=== PATIENT | female | born 1950 | race Hispanic/Latino ===

== ENCOUNTER 2019-04-13 15:31 | Emergency (ER) | payer OTHER ==
[~2019-04-13 15:31] MED LIST: ASPI-1012 PO; LISI-613 PO; METH750T3 PO; ROSU5TAB PO; TRAM50TA2 PO
[2019-04-13] MEDS ORDERED: LORAZEPAM 2 MG/ML 1 ML VIAL ONE (16:14)
[2019-04-13] MEDS ORDERED: SODIUM CHLORIDE 0.9% 1000ML 1,000 ML IV ONE (16:16)
[2019-04-13 16:38] LABS: BASOPHILS % (AUTO) 0.4 % (0.0-5.0); EOSINOPHILS % (AUTO) 2.2 % (0.0-8.0); HEMATOCRIT 41.8 % (36-48); LYMPHOCYTES % (AUTO) 28.8 % (21.0-51.0); MEAN CORPUSCULAR HEMOGLOBIN 27.9 pg (27.0-33.0); MEAN CORPUSCULAR HGB CONC 32.5 g/dL (32.0-36.0); MEAN CORPUSCULAR VOLUME 85.8 fL (79-99); MONOCYTES % (AUTO) 5.8 % (3.0-13.0); NEUTROPHILS % (AUTO) 62.5 % (40.0-77.0); PLATELET COUNT (AUTO) 214 K/uL (130-400); RED BLOOD CELL COUNT(AUTO) 4.87 MIL/uL (4.00-5.50); RED CELL DISTRIBUTION WIDTH 12.9 % (11.0-15.5)
[2019-04-13 17:04] LABS: CREATININE 0.7 mg/dL (0.5-1.5); POTASSIUM 3.8 mmol/L (3.5-5.1)
[2019-04-13 17:09] LABS: ALBUMIN 3.7 g/dL (3.5-5.0); BILIRUBIN,TOTAL 0.5 mg/dL (0.2-1.0); TOTAL PROTEIN, SERUM 7.5 g/dL (6.0-8.3)
[2019-04-13] MEDS ORDERED: ACETAMINOPHEN 325 MG TAB ONE (17:39)
== END 2019-04-13 18:12 | disposition home or self-care (01) ==
LOC: EDH 15:31
DX: R42 Dizziness and giddiness (principal); R06.00 Dyspnea, unspecified; I10 Essential (primary) hypertension; E78.5 Hyperlipidemia, unspecified; Z90.49 Acquired absence of other specified parts of digestive tract; Z98.890 Other specified postprocedural states
CPT/HCPCS: 36415; 71045; 80053; 82550; 83880; 84484; 85025; 85378; 93005; 93970; 96361; 96374; 99285; J2060; J7030

== ENCOUNTER 2023-10-02 09:17 | Emergency (ER) | payer OTHER ==
[~2023-10-02] VITALS: Ht 157.5 cm; Wt 90.7 kg
[~2023-10-02 09:17] MED LIST changes: -LISI-613 PO; +LISI20TA24 PO; +METH-812 PO; -METH750T3 PO
[2023-10-02 09:58] LABS: RAPID GROUP A STREP negative (NEGATIVE)
[2023-10-02 10:04] LABS: INFLUENZA TYPE A Negative For Type A (NEGATIVE); INFLUENZA TYPE B Negative For Type B (NEGATIVE)
[2023-10-02 10:28] LABS: BASOPHILS # (AUTO) 0.02 K/uL (0.00-0.20); BASOPHILS % (AUTO) 0.2 % (0.0-5.0); EOSINOPHILS # (AUTO) 0.07 K/uL (0.00-0.70); EOSINOPHILS % (AUTO) 0.7 % (0.0-8.0); HEMATOCRIT 37.7 % (36-48); IMMATURE GRANULOCYTE ABSOLUTE 0.05 K/uL (0-1); LYMPHOCYTES # (AUTO) 0.7 K/uL (1.0-4.8); LYMPHOCYTES % (AUTO) 7.4 % (21.0-51.0); MEAN CORPUSCULAR HGB CONC 34.2 g/dL (32.0-36.0); MEAN CORPUSCULAR VOLUME 84.7 fL (79-99); MONOCYTES # (AUTO) 0.5 K/uL (0.1-1.0); NEUTROPHILS # (AUTO) 8.6 K/uL (1.8-7.7); NEUTROPHILS % (AUTO) 86.2 % (40.0-77.0); PLATELET COUNT (AUTO) 233 K/uL (130-400); RED BLOOD CELL COUNT(AUTO) 4.45 MIL/uL (4.00-5.50); RED CELL DISTRIBUTION WIDTH 12.5 % (11.0-15.5); WHITE BLOOD COUNT (AUTO) 9.9 K/uL (4.8-10.8)
[2023-10-02 10:38] LABS: SARS-CoV-2, RNA, NAAT POSITIVE SARS CoV-2 (NEGATIVE)
[2023-10-02 10:39] LABS: POTASSIUM 3.2 mmol/L (3.5-5.1)
[2023-10-02] MEDS ORDERED: ONDANSETRON 4MG INJ IVP ONE (11:00)
[2023-10-02] MEDS: ONDANSETRON 4MG TABLET PO ONE (11:07)
[2023-10-02] MEDS: KCL 20 MEQ ERTAB PO ONE (11:07)
[2023-10-02] MEDS: ONDANSETRON 4MG TABLET ONE (11:07)
[2023-10-02 14:10] VITALS: BP 141/65; PULSE 70; RESP 16; O2SAT 100
[2023-10-02] MEDS ORDERED: AZIT250T9 PO (14:11)
== END 2023-10-02 14:13 | disposition home or self-care (01) ==
LOC: EDH 09:17
DX: U07.1 COVID-19 (principal); J20.8 Acute bronchitis due to other specified organisms; B97.89 Other viral agents as the cause of diseases classified elsewhere; K59.09 Other constipation; E78.00 Pure hypercholesterolemia, unspecified; Z86.73 Personal history of transient ischemic attack (TIA), and cerebral infarction without residual deficits; Z90.49 Acquired absence of other specified parts of digestive tract
CPT/HCPCS: 99284; 71045; 87635; 80048; 85025; 87880; 87804 ×2; 36415; 74018; Q0162

== ENCOUNTER → 2024-02-05 | Outpatient (CLI) | payer OTHER ==
[~2024-02-05] MED LIST changes: +AZIT250T9 PO
--- NOTE | 2024-02-05 16:13 | HMCIMG ---
CHEST 2VWS REASON: WHEEZING COMPARISON: 10/02/2023 FINDINGS: Two views of the chest were obtained. Lungs are clear. Heart size is normal. There is no pulmonary vascular congestion. Mediastinum and bony thorax appear unremarkable. IMPRESSION: Normal two view chest x-ray.
== END | disposition home or self-care (01) ==
LOC: RAH 14:57
PROVIDERS: ATTEND Physician Assistant Medical
DX: R06.2 Wheezing (principal)
CPT/HCPCS: 71046

== ENCOUNTER 2025-03-03 11:47 | Emergency (ER) | payer OTHER ==
[~2025-03-03] VITALS: Ht 157.5 cm; Wt 90.7 kg
[2025-03-03 11:49] VITALS: BP 144/86; PULSE 90; RESP 16; TEMP 98.7
--- NOTE | 2025-03-03 13:00 | NUR ---
PT MOVED INTO ED BED09 AT THIS TIME FOR ASSESMENT. PT C/O BILATERAL KNEE PAIN POST TRIP AND FALL. DENIES HEAD INJURY.
--- NOTE | 2025-03-03 14:19 | ERN ---
ED Note History of Present Illness Stated Complaint: FALL Chief Complaint: Mechanical Fall Time Seen by MD: 12:35 Time Seen by Midlevel: 13:00 Dictation: 74-year-old female coming in status post ground level fall. Patient states she was up on the 3rd floor visiting her daughter when she slipped fell forward. Complaining of bilateral knee pain and chest pain. Patient states she fell and hit her knees on the floor along with the her chest. Denies any head injury, denies any blood thinners. Denies any LOC. Allergies: Coded Allergies: No Known Drug Allergies (Unverified Allergy, Unknown, 05/04/15) Home Meds Active Scripts Azithromycin (Azithromycin) 250 Mg Tablet, 250 MG PO DAILY for 5 Days, #5 TAB Prov:ENOCH SIMMONS MD 10/02/23 Tramadol HCl (Ultram) 50 Mg Tab, 50 MG PO Q6H PRN for PAIN, #25 TAB Prov:NANCY LOVETT MD 05/07/15 Reported Medications Aspirin (ASPIRIN) 325 Mg Tablet, 325 MG PO AM, TAB 05/04/15 Methocarbamol (Methocarbamol) 750 Mg Tablet, 750 MG PO BID, TAB 05/04/15 Rosuvastatin Calcium (Crestor) 5 Mg Tablet, 5 MG PO HS, TAB 05/04/15 Lisinopril (Lisinopril) 20 Mg Tablet, 20 MG PO AM, TAB 05/04/15 Past Medical History Past Medical History: High Cholesterol, Hypertension, Stroke Surgical History: Cholecystectomy, Family History: Negative Social History: Negative History: Not Applicable Review of System Dictation Constitutional: Negative for fever,chills, and weight loss Eyes: Negative for injury, pain,redness, and discharge ENT: Negative for injury,pain or swelling Cardiovascular: Negative for chest pain, palpitations, and edema Respiratory: Negative for shortness of breath, cough, and wheezing, Abdomen/GI: Negative for abdominal pain, nausea, vomiting, diarrhea, and constipation Back: Negative for injury and pain : Negative for injury, bleeding and discharge MS/Extremity: Complaining of bilateral knee pain Skin: Negative for rash, and discoloration Neuro: Negative for headache, weakness, numbness, tingling, and seizure Psych: Negative for suicide ideation, homicidal ideation, and hallucinations Review of Systems: was completed Initial Vital Sign VS Vital Signs Date Time Temp Pulse Resp B/P (MAP) Pulse Ox O2 Delivery O2 Flow Rate FiO2 03/03/25 11:49 98.8 90 16 144/86 96 Room Air 0 Physical Exam Dictation General: awake, alert, NAD Head/Face: Normocephalic, atraumatic Eyes: PERRL, EOMI, vision at baseline ENT: oral cavity clear, TMs clear, no signs of infection Neck: Trachea midline, supple, no nuchal rigidity Cardiovascular: RRR, normal S1/S2, No MRGs, no JVD, atraumatic Respiratory: CTAB, no respiratory distress, No rales or wheezes Abdomen: Soft, non-tender, non-distended, normal bowel sounds, no guarding or rebound. Skin: Warm, dry, normal turgor, no rash MS/Extremity: Pulses equal, no cyanosis, neurovascular intact, FROM, bilateral knee ecchymosis noted, no obvious deformities Neuro: COAx4, GCS 15, strength 5/5, CN 2-12 intact, normal cerebellar exam, normal gait, Psych: Normal behavior, mood, and affect normal Results (Laboratory/Radiology) X-RAY Comment: [address] [id number] IMAGING REPORT Signed PATIENT: ERICA ANTONY MR#: [id number] : 1950 SEX: F AGE: 74 LOCATION: [facility] ORDER 1331 STATUS: [facility] REPORT#: [id number] SERVICE 1330 REASON: TRAUMA ORDERING PHYSICIAN: SANJAY TIMMONS CNP PROCEDURE: KNEE 3VBIL - KNEE 3 VW BILATERAL STUDY CR knees bilateral, 3 views each CLINICAL HISTORY Trauma TECHNIQUE Three radiographic views of each knee were obtained. COMPARISON None provided. FINDINGS Bones No acute fracture is identified in either knee. No aggressive-appearing osseous lesion is seen. Joints There is moderate osteoarthritic change in both knees, with joint space narrowing, subchondral sclerosis, and marginal osteophyte formation, more pronounced in the tibiofemoral compartments. No sizable joint effusion is appreciable in either knee. Soft tissues The visualized soft tissues about both knees are unremarkable, with no soft-tissue gas or radiopaque foreign body. IMPRESSION * Bilateral moderate knee osteoarthritis, more evident in the tibiofemoral compartments. * No acute fracture or dislocation of either knee. /[place] DICTATED BY: CORIE LOMELI DO DATE: 03/03/251536 ELECTRONICALLY SIGNED BY: CORIE LOMELI DO DATE: 03/03/251536 [facility] [place], [place] [address] [place] [address] IMAGING REPORT Signed PATIENT: ERICA ANTONY MR#: [id number] : 1950 SEX: F AGE: 74 LOCATION: [facility] ORDER 30 STATUS: REG ER REPORT#: [id number] SERVICE 29 REASON: TRAUMA ORDERING PHYSICIAN: SANJAY TIMMONS CNP PROCEDURE: CXR1VW - CHEST 1VW EXAM: CR Chest, 1 View. CLINICAL HISTORY: TRAUMA COMPARISON: None provided. FINDINGS: LUNGS: There is no mass, infiltrate, or acute pulmonary abnormality. PLEURAL SPACES: No pleural effusion or pneumothorax. MEDIASTINUM: The cardiomediastinal silhouette is within normal limits. BONES: No aggressive appearing osseous lesion seen. IMPRESSION: No acute cardiopulmonary pathology is evident. /[place] DICTATED BY: DULCE FERMIN Jr., MD DATE: 03/03/251533 ELECTRONICALLY SIGNED BY: DULCE FERMIN Jr., MD DATE: 03/03/251533 ED Course ED Course Orders Procedure Category Date Status Time Chest 1vw RAD 03/03/25 Resulted 13:30 Knee 3 Vw Bilateral RAD 03/03/25 Resulted 13:30 Acetaminophen 500mg PHA 03/03/25 Complete Tab (Tylenol 500mg T 13:30 Current Medications Medications (Trade) Dose Ordered Sig/Miriam Route PRN Reason Start Time Stop Time Status Last Admin Dose Admin Acetaminophen (TYLenol 500MG TAB) 1,000 mg ONCE ONCE PO 03/03/25 13:30 03/03/25 13:32 DC Vital Signs Date Time Temp Pulse Resp B/P (MAP) Pulse Ox O2 Delivery O2 Flow Rate FiO2 03/03/25 11:49 98.8 90 16 144/86 96 Room Air 0 Medical Decision Making MDM MDM: 74-year-old female presents after a mechanical fall while visiting family member on the 3rd floor. Patient states she slipped and fell forward landing on both knees and striking her chest. Reports bilateral knee pain and left-sided chest pain. No head strike, no LOC, no anticoagulation use and denies any headache, dizziness, nausea, vomiting, shortness a breath or palpitations. Bilateral knee x-ray shows no acute fracture or dislocation, chest x-ray shows no acute cardiopulmonary findings no rib fractures or pneumothorax. On physical exam mild bruising and tenderness over both knees full range of motion, no ligamentous laxity, no deformity. Chest wall tender to palpation over the left anterior ribs no ecchymosis noted, lungs clear, no crepitus no step-offs. Mechanical fall resulting in bilateral knee contusions and left-sided chest wall contusion. No radiographic evidence of fracture or pneumothorax. No vascular intact. Patient will be discharged home in stable condition with strict return precautions. Precautions including worsening pain, inability to ambulate, chest pain associated with shortness a breath, dizziness or syncope. It recommended to follow up with PCP in 2-3 days. Differential diagnosis: Knee fracture, knee dislocation, knee contusion, chest contusion Rationale: Tests considered and ordered secondary to shared decision making include: Previous outside records reviewed: Old ER visits. Risk of complication and/or morbidity or mortality of patient management: None Medications-Per medication reconciliation Need for hospitalization: Patient does not meet criteria for hospitalization. Need for emergency major/minor surgery: No There are no social concerns with this patient. Prescription drug management Prescriptions will include symptomatic care Patient's prior external medical records from other ER visits were reviewed by me as indicated. Prior testing and results from previous visits were reviewed. Prior tests were taken into account with medical decision making and resource utilization, independent historian/historians were used to obtain complete medical history. I independently interpreted the test that were performed, results were reviewed by me and considered findings on radiology if ordered. Medical management and examination interpretation discussions were had by me with other qualified healthcare professionals as indicated for the patient's care. DX & DISP Disposition: Discharge Departure Impression: Primary Impression: Contusion of right knee Additional Impressions: Contusion of left knee, Contusion of left chest wall Condition: Stable Additional Instructions: X-rays are normal. There are no broken bones. Take Tylenol or Motrin [id number] for pain control. Follow up with your primary care doctor in 2-3 days. If you develop any chest pain with difficulty breathing, unable to walk, dizziness, syncope episode please return back to the emergency room. Referrals: CHLOÉ SAUCEDO (PCP) Time of Disposition: 14:45 I have reviewed the case, and I agree with, Diagnosis and Plan SANJAY TIMMONS CNP Mar 03, 2025 14:19
--- NOTE | 2025-03-03 14:35 | HMCIMG ---
EXAM: CR Chest, 1 View. CLINICAL HISTORY: TRAUMA COMPARISON: None provided. FINDINGS: LUNGS: There is no mass, infiltrate, or acute pulmonary abnormality. PLEURAL SPACES: No pleural effusion or pneumothorax. MEDIASTINUM: The cardiomediastinal silhouette is within normal limits. BONES: No aggressive appearing osseous lesion seen. IMPRESSION: No acute cardiopulmonary pathology is evident. /[place]
--- NOTE | 2025-03-03 14:39 | HMCIMG ---
STUDY CR knees bilateral, 3 views each CLINICAL HISTORY Trauma TECHNIQUE Three radiographic views of each knee were obtained. COMPARISON None provided. FINDINGS Bones No acute fracture is identified in either knee. No aggressive-appearing osseous lesion is seen. Joints There is moderate osteoarthritic change in both knees, with joint space narrowing, subchondral sclerosis, and marginal osteophyte formation, more pronounced in the tibiofemoral compartments. No sizable joint effusion is appreciable in either knee. Soft tissues The visualized soft tissues about both knees are unremarkable, with no soft-tissue gas or radiopaque foreign body. IMPRESSION * Bilateral moderate knee osteoarthritis, more evident in the tibiofemoral compartments. * No acute fracture or dislocation of either knee. /[place]
== END 2025-03-03 15:39 | disposition home or self-care (01) ==
LOC: EDH 11:47
DX: S80.01XA Contusion of right knee, initial encounter (principal); S80.02XA Contusion of left knee, initial encounter; S20.212A Contusion of left front wall of thorax, initial encounter; I10 Essential (primary) hypertension; E78.00 Pure hypercholesterolemia, unspecified; Z90.49 Acquired absence of other specified parts of digestive tract; Z98.890 Other specified postprocedural states; Z86.73 Personal history of transient ischemic attack (TIA), and cerebral infarction without residual deficits; W18.39XA Other fall on same level, initial encounter; Y93.89 Activity, other specified; Y92.89 Other specified places as the place of occurrence of the external cause; Y99.8 Other external cause status
CPT/HCPCS: 71045; 99284